=== PATIENT | female | born 1950 | race Caucasian/White ===

== ENCOUNTER 2023-03-17 19:36 | Emergency (ER) | payer MEDICARE, OTHER, SELFPAY ==
[2023-03-17 19:47] VITALS: BP 165/110
--- NOTE | 2023-03-17 21:56 | ED.MUSCINJ ---
HPI-Injury
General
Chief Complaint: Fall
Source: patient
Exam Limitations: none
Time Seen by Provider: 03/17/23 20:47
Nursing documentation reviewed up to this point in time: agreed with
Travel History
Have you had any contact with someone who has COVID-19?: No
Do you have any symptoms of coronavirus? Fever > 100 degrees, chills, cough, shortness of breath, sore throat, loss of taste or smell, muscle aches, or headache?: No
History of Present Illness-Injury
Is this injury a work related problem?: No
Is pt an associate of [facility]?: No
Initial Injury comments:
Patient states she was walking her dog and tripped over a pipe. Fell onto pavement. Hit chin hard on pavement. No LOC. Sustained lac to left hand. She was seen at and had sutures placed, dressing applied. SHe was discharged from and sent
to ED for head CT since she hit her head. COmplains of mild headache.
Past History
Past History
ED Past Medical History: Other (Chronic neck issues )
ED Past Surgical History: Appendectomy, , Gynecological (Ovarian removal ) and Orthopedic
Social History
Tobacco: Non-smoker
Alcohol: None
Drug: Marijuana
Personal: Single
Employment: Employed
Family History
Family History: Negative Early CAD
Review of Systems
Review of Systems
Allergies reviewed?: Yes
All Other Systems: ROS reviewed and negative except as documented in HPI and ROS
Constitutional: Reports no symptoms
EENT: Reports no symptoms
Respiratory: Reports no symptoms
Cardiac: Reports no symptoms
ABD/GI: Reports no symptoms
: Reports no symptoms
Musculoskeletal: Reports no symptoms
Skin: Reports other (laceration to left hand, repaired at )
Neurological: Reports headache
Psychiatric: Reports no symptoms
Phy Exam
General Physical Exam
General Presentation: well appearing and no apparent distress
General age: appears stated age
General Skin: warm and dry
General Habitus: normal
General Mental: alert
Neurological Exam
Neurological Exam: alert, oriented x3, CN II-XII intact, no motor deficits, speech normal and normal gait
[place] Coma Scale
Eye Opening: Spontaneous
Verbal Response: Oriented
Motor Response: Obeys Commands
GCS Total Score: 15
Musculoskeletal Exam
Musculoskeletal Exam: full ROM
Skin Exam
Skin Exam: normal color
Psychiatric Exam
Psychiatric Exam: normal mood/affect
Injury Course
Orders/Labs/Results
Orders:
Orders
03/17/23 19:52
CT Head W/o Iv Contrast Urgent
Comment:
Reason For Exam: fall with neck pain
Cervical Spine wo Contrast CT [CT Cervical Spine W/o Iv Contr] Urgent
Comment:
Reason For Exam: fall with neck pain
*Radiology
Radiology exam reviewed: radiology read reviewed
*Pulse Oximetry
Patient hypoxic: no
*Critical Care Note
Total Time (30-74mins, 75-104mins- exclusive of procedures): Not Applicable
ED Attending Note
-
Portions of this chart may have been created with voice recognition software.� Occasional wrong word or��sound alike� substitutions may have occurred due to the inherent limitations of voice recognition software.
Discharge Plan
Departure
Patient Disposition: Home (Routine Discharge)
Date of Disposition: 03/17/23
Time of Disposition: 21:04
Patient with high blood pressure during this ER visit?: No
Condition: Good
Covid-19: Not Applicable
Discharge Problem:
Head injury
Instructions: Head Injury in Adults (DC), Contusion (DC)
Prescriptions:
No Action
vitamin A 8,000 UNIT capsule
8,000 units PO DAILY
vitamin E 400 UNIT capsule
400 unit PO DAILY
cholecalciferol (vitamin D3) [Vitamin D3] 1,000 UNIT tablet
1,000 unit PO DAILY
omega-3 fatty acids [Fish Oil] 500 MG capsule
500 mg PO DAILY
Activity Restrictions/Additional Instructions:
FOllow up with your family doctor.
Interventions
Interventions:
*Risk Screen - Suicide Last Done: 03/17/23 19:47
*General Assessment Last Done: 03/17/23 19:47
*ED COVID-19 Vaccine History Last Done: 03/17/23 19:47
== END 2023-03-17 22:17 | disposition home or self-care (01) ==
LOC: EMR 19:36
PROVIDERS: EMERGENCY PHYSICIAN Emergency Medicine; FAMILY PHYSICIAN Family Medicine
DX: S09.90XA Unspecified injury of head, initial encounter (principal); S61.412A Laceration without foreign body of left hand, initial encounter; R51.9 Headache, unspecified; M54.2 Cervicalgia; R11.0 Nausea; W18.09XA Striking against other object with subsequent fall, initial encounter; Y93.K1 Activity, walking an animal; M19.90 Unspecified osteoarthritis, unspecified site
CPT/HCPCS: 99284; 70450; 72125

== ENCOUNTER 2024-05-13 15:04 | Emergency (ER) | payer MEDICARE, OTHER, SELFPAY ==
[2024-05-13 15:23] VITALS: BP 159/98
[2024-05-13 15:34] LABS: % Basophils 0.9 % (0-2); % Eosinophils 1.7 % (0-6); % Immature Granulocytes 0.5 % (0-0.5); % Lymphocytes 22.6 % (20.5-51.1); % Monocytes 8.5 % (1.7-9.3); % Neutrophils 65.8 % (42.2-75.2); Absolute Basophils 0.1 10^3/uL (0-0.2); Absolute Eosinophils 0.1 10^3/uL (0-0.7); Absolute Lymphocytes 1.3 10^3/uL (1.2-3.4); Absolute Monocytes 0.5 10^3/uL (0.1-0.6); Absolute Neutrophils 3.8 10^3/uL (1.4-6.5); Hematocrit 43.8 % (37.0-47.0); Hemoglobin 14.1 g/dL (12.0-16.0); Mean Corp Hgb Conc. 32.2 g/dL (33.0-37.0); Mean Corpuscular Hgb 27.6 pg (27.0-31.0); Mean Corpuscular Volume 85.9 fL (81.0-99.0); Mean Platelet Volume 10.4 fL (7.4-10.4); Nucleated Red Blood Cells % 0 %; Platelet Count 276 10^3/uL (130-400); Red Cell Dist. Width 13.6 % (11.5-14.5); White Blood Cell Count 5.8 10^3/uL (4.8-10.8)
[2024-05-13 15:43] LABS: ALT (SGPT) 25 U/L (0-35); AST (SGOT) 26 U/L (14-36); Albumin 4.4 g/dl (3.5-5.0); Alkaline Phosphatase 98 U/L (38-126); Blood Urea Nitrogen 15 mg/dl (7-17); Calcium 9.8 mg/dl (8.4-10.2); Carbon Dioxide 29 mmol/L (22-30); Chloride 102 mmol/L (98-107); Glucose 100 mg/dl (70-99); Potassium 4.2 mmol/L (3.5-5.1); Sodium 137 mmol/L (135-145); Total Bilirubin 0.5 mg/dl (0.2-1.3); Total Protein 6.4 g/dl (6.3-8.2); eGFR > 60.00
[2024-05-13 15:54] LABS: Troponin I < 0.012 ng/ml
--- NOTE | 2024-05-13 17:39 | ED.GENMED ---
History of Present Illness
General
Chief Complaint: Chest Pain
Source: patient
Exam Limitations: none
Time Seen by Provider: 05/13/24 17:22
History of Present Illness
History of Present Illness:
See MDM
Past History
Past History
ED Past Medical History: Other (Chronic neck issues )
ED Past Surgical History: Appendectomy, , Gynecological (Ovarian removal ) and Orthopedic
Social History
Tobacco: Non-smoker
Alcohol: None
Drug: Marijuana
Personal: Single
Employment: Employed
Family History
Family History: Negative Early CAD
Phy Exam
Physical Exam
Physical Exam:
See MDM
Scores
Heart Score for Chest Pain Patients
STEMI patient?: No
History: Slightly or Non-Suspicious
ECG: Normal
Age: >/= 65 years
Risk Factors: No Risk Factors
Troponin: </= Normal Limit
Heart Score for Chest Pain Patients: 2
Heart Score Risk: 2.5% MACE over next 6 weeks
Course
Orders/Labs/Results
Orders:
Orders
05/13/24 15:05
ECG [Electrocardiogram (*1)] Urgent
Reason for Study: Chest Pain
EKG- Treatment ONCE
05/13/24 15:18
Complete Blood Count/With Diff Urgent
Comprehensive Metabolic Panel Urgent
Troponin I Urgent
05/13/24 17:38
Amlodipine [Norvasc] 5 mg PO ONCE ONE
05/13/24 18:00
Dexamethasone Pf [Decadron] 10 mg PO NOW STA
Abnormal Lab Results
05/13/24
15:18
MCHC 32.2 L g/dL
(33.0-37.0)
Glucose 100 H mg/dl
(70-99)
05/13/24 15:18
05/13/24 15:18
Vital Signs
Initial and Last Documented VS:
Initial Vital Signs
Temp Pulse Resp BP Pulse Ox
98.4 F 89 16 159/98 99
05/13/24 15:23 05/13/24 15:23 05/13/24 15:23 05/13/24 15:23 05/13/24 15:23
Last Documented Vital Signs
Temp Pulse Resp BP Pulse Ox
98.4 F 89 16 159/98 96
05/13/24 15:23 05/13/24 15:23 05/13/24 15:23 05/13/24 15:23 05/13/24 17:03
MDM/Problems Addressed
Differential Diagnosis Includes:
HPI and MDM Narrative:
73-year-old female presenting for evaluation of headache and chest pressure. Patient does acknowledge that the chest pressure is somewhat constant. She has a history of reflux and is trying to get off of omeprazole. She believes it could be
related to reflux. She saw her doctor who was going to place her on antihypertensives but wanted her evaluated for her chest pressure first. EKG and blood work done prior to my assessment. EKG within normal limits and troponin negative. I
discussed with patient that her chest discomfort is likely noncardiac. Symptoms are nonexertional. 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 She also complains of a posterior headache. She states she has had
multiple injuries in the past and has had prolonged concussion syndrome. We discussed it could be related to that. Given no neurodeficits, we discussed low yield for CT head. Patient agrees.
I believe much of her symptoms are related to her insomnia and lack of sleep. Patient states she usually sleeps only 3 hours at night. She states he has a history of sleep apnea but is hesitant to start CPAP. I discussed the medical benefits of
sleep and we discussed the significant stress in the body due to lack of sleep. Patient does acknowledge and will talk to her doctor this week about how to obtain better sleep. Will start on low-dose amlodipine until she can be seen by PCP this
week
Physical exam
General: Well appearing and non-toxic
HEENT: protecting airway. EOMI. Pupils are equal and reactive
Neck: appears supple
CV: No evidence of cyanosis. Regular rate and rhythm
Resp: No accessory muscle use. Lungs clear
Abd: Non-distended
Extremities: No deformities. No leg edema
Neuro: alert
Psych: Normal affect
Skin: Intact
Problems Addressed including Acute and Chronic Conditions affecting care:
1. Hypertension
Acuity: Likely chronic
Prognosis: stable
Details: Will start low-dose amlodipine. No evidence of endorgan damage on blood work
2. Chest pain
Acuity: acute
Prognosis: stable
Details: Given nonexertional symptoms and duration of symptoms with a negative troponin and EKG, doubt ACS
Update
Prior to being discharged, patient noted a hive in her right antecubital fossa where the blood was obtained. Patient states she has had prior allergic issues in the past. She states some of them have been significant. I suggested Benadryl and
Decadron and watching to ensure that she develops no throat involvement. Patient states she has Benadryl at home but is willing to take Decadron and go home. We discussed return precautions. Patient given dose of Decadron
Differential Diagnosis (but not limited to): Insomnia, hypertension, noncardiac chest pain
Testing considered: Second troponin but doubt ACS given duration of symptoms
Drug therapy (if applicable): OTC meds, please see d/c instruction regarding Rx drugs
Amount and/or Complexity of Data Reviewed
Clinical info obtained from: Patient
External data reviewed: N/A
Labs I independently reviewed (but not limited to): Normal troponin
Radiology: N/A
Pulse Ox: not hypoxic
EKG independently reviewed: Sinus rhythm, normal axis, no STEMI
Returns Processor: Sinus rhythm
Critical Care: N/A
Risk of Complication:
Social Determinants of health: Good social support
Discussed with other providers: N/A
Escalation of Care includes Admit/Obs: After being observed in the Emergency Department, pt stable for discharge.
Occasional wrong word or 'sound a like' substitutions may have occurred due to the inherent limitations of voice recognition software. Read the chart carefully and recognize, using context, where substitutions have occurred.
*Critical Care Note
Total Time (30-74mins, 75-104mins- exclusive of procedures): Not Applicable
ED Attending Note
-
Portions of this chart may have been created with voice recognition software.� Occasional wrong word or��sound alike� substitutions may have occurred due to the inherent limitations of voice recognition software.
Discharge Plan
Departure
Patient Disposition: Home (Routine Discharge)
Date of Disposition: 05/13/24
Time of Disposition: 17:42
Patient with high blood pressure during this ER visit?: Yes
Discharge Problem:
Mild HTN
Instructions: BLOOD PRESSURE
Prescriptions:
New
amlodipine 5 mg tablet
5 mg PO DAILY Qty: 7 0RF
No Action
vitamin A 8,000 UNIT capsule
8,000 units PO DAILY
vitamin E 400 UNIT capsule
400 unit PO DAILY
cholecalciferol (vitamin D3) [Vitamin D3] 1,000 UNIT tablet
1,000 unit PO DAILY
omega-3 fatty acids [Fish Oil] 500 MG capsule
500 mg PO DAILY
Activity Restrictions/Additional Instructions:
Please return for any worsening symptoms.
You may return at any time if you have further concerns.
Please follow up with your doctor at the first available appointment, preferably this week.
Thank you for choosing [facility].
Interventions
Interventions:
*Risk Screen - Suicide Last Done: 05/13/24 15:24
*Neglect/Abuse Screening Last Done: 05/13/24 15:24
Discharge Date and Time
Print Language: AMHARIC
[2024-05-13] MEDS: NORVASC 5 MG PO (18:02)
[2024-05-13] MEDS: DECADRON 10 MG PO (18:03)
[2024-05-13 18:14] VITALS: BP 156/84
--- NOTE | 2024-05-13 18:14 | EDRN ---
decadron PO administered per Dr. Beaulieu orders for RAC redness and itching
[2024-05-13 18:15] VITALS: BMI 24.2
== END 2024-05-13 18:25 | disposition home or self-care (01) ==
LOC: EMR 15:04
PROVIDERS: EMERGENCY PHYSICIAN Student in an Organized Health Care Education/Training Program; FAMILY PHYSICIAN Family Medicine
DX: I10 Essential (primary) hypertension (principal); Z90.49 Acquired absence of other specified parts of digestive tract
CPT/HCPCS: 99283; 80053; 84484; 85025; 93005

== ENCOUNTER 2024-08-29 12:51 | Emergency (ER) | payer MEDICARE, OTHER, SELFPAY ==
[2024-08-29 13:00] VITALS: BP 149/99
[2024-08-29 13:31] LABS: Hematocrit 43.7 % (37.0-47.0); Hemoglobin 14.2 g/dL (12.0-16.0); Mean Corp Hgb Conc. 32.5 g/dL (33.0-37.0); Mean Corpuscular Volume 85.5 fL (81.0-99.0); Nucleated Red Blood Cells % 0 %; Platelet Count 235 10^3/uL (130-400); Red Cell Dist. Width 13.7 % (11.5-14.5)
[2024-08-29 14:01] LABS: ALT (SGPT) 34 U/L (0-35); AST (SGOT) 34 U/L (14-36); Albumin 4.2 g/dl (3.5-5.0); Alkaline Phosphatase 93 U/L (38-126); Blood Urea Nitrogen 7 mg/dl (7-17); Calcium 9.5 mg/dl (8.4-10.2); Carbon Dioxide 27 mmol/L (22-30); Chloride 105 mmol/L (98-107); Glucose 122 mg/dl (70-99); Potassium 4.0 mmol/L (3.5-5.1); Sodium 137 mmol/L (135-145); Total Protein 6.4 g/dl (6.3-8.2); eGFR > 60.00
[2024-08-29 14:12] LABS: Troponin I < 0.012 ng/ml
[2024-08-29 15:18] VITALS: BP 148/93
[2024-08-29 15:19] VITALS: BMI 23.2
[2024-08-29 16:00] VITALS: BP 147/91
--- NOTE | 2024-08-29 16:00 | ED.GENMED ---
History of Present Illness
General
Chief Complaint: Chest Pain
Source: patient
Exam Limitations: none
Time Seen by Provider: 08/29/24 15:59
History of Present Illness
History of Present Illness:
73yoF with a history of hypertension and GERD presenting for evaluation of chest pain. Patient was sitting reclined around noon today. She drank some tea and ate crackers. She felt like the crackers got stuck in the middle of her chest and she
started to experience 'gripping' pain in her substernal region. Pain radiated to her jaw and head. Pain occurred every minute for about 45 minutes to an hour before resolving. She did become diaphoretic during the episode. She denies any
associated nausea, vomiting, shortness of breath, dizziness, paresthesias. Her symptoms resolved while she was in the waiting room and she has been pain free for about 2.5 hours. Of note, patient has been experiencing diarrhea for the past 3 days
which seems improved today. She reports having a stress test about 3 years ago which was reportedly normal.
Past History
Past History
ED Past Medical History: Other (Chronic neck issues )
ED Past Surgical History: Appendectomy, , Gynecological (Ovarian removal ) and Orthopedic
Social History
Tobacco: Non-smoker
Alcohol: None
Drug: Marijuana
Personal: Single
Employment: Employed
Family History
Family History: Negative Early CAD
Phy Exam
General Physical Exam
General Presentation: well appearing and no apparent distress
General Skin: warm and dry
General Habitus: normal
General Mental: alert
ENT Exam
ENT Exam: normocephalic
Cardiovascular Exam
Cardiovascular Exam: regular rate/rhythm, no edema, no murmur and normal peripheral pulses (2+ radial and DP pulses bilaterally)
Pulmonary Exam
Pulmonary Exam: lungs clear, no respiratory distress, no rales, no crackles, no rhonchi and no wheezing
Gastrointestinal Exam
Gastrointestinal Exam: non tender, soft and non distended
Neurological Exam
Neurological Exam: alert
[place] Coma Scale
Eye Opening: Spontaneous
Verbal Response: Oriented
Motor Response: Obeys Commands
GCS Total Score: 15
Skin Exam
Skin Exam: normal color and warm/dry
Psychiatric Exam
Psychiatric Exam: normal mood/affect
Scores
Heart Score for Chest Pain Patients
STEMI patient?: No
History: Moderately Suspicious
ECG: Normal
Age: >/= 65 years
Risk Factors: 1 or 2 Risk Factors
Troponin: </= Normal Limit
Heart Score for Chest Pain Patients: 4
Heart Score Risk: 20.3% MACE over next 6 weeks
Course
Orders/Labs/Results
Orders:
Orders
08/29/24 12:52
EKG [Electrocardiogram (*1)] Urgent
Reason for Study: Chest Pain
EKG- Treatment ONCE
08/29/24 13:16
Complete Blood Count/With Diff Urgent
Comprehensive Metabolic Panel Urgent
Troponin I Urgent
08/29/24 16:12
Electrocardiogram (*1) Urgent
Reason for Study: Chest Pain
Cardiac Monitoring- Treatment ONCE
EKG- Treatment ONCE
CR Chest - 2 Views Urgent
Comment:
Reason For Exam: CP
08/29/24 16:29
Troponin I Urgent
Abnormal Lab Results
08/29/24
13:16
WBC 3.5 L 10^3/uL
(4.8-10.8)
MCHC 32.5 L g/dL
(33.0-37.0)
MPV 10.8 H fL
(7.4-10.4)
Absolute Lymphs (auto) 0.9 L 10^3/uL
(1.2-3.4)
Monocytes % 12.7 H %
(1.7-9.3)
Glucose 122 H mg/dl
(70-99)
08/29/24 13:16
08/29/24 13:16
Vital Signs
Initial and Last Documented VS:
Initial Vital Signs
Temp Pulse Resp BP Pulse Ox
97.7 F 83 22 149/99 99
08/29/24 13:00 08/29/24 13:00 08/29/24 13:00 08/29/24 13:00 08/29/24 13:00
Last Documented Vital Signs
Temp Pulse Resp BP Pulse Ox
97.7 F 77 15 147/91 96
08/29/24 13:00 08/29/24 16:34 08/29/24 16:34 08/29/24 16:00 08/29/24 16:15
MDM/Problems Addressed
Differential Diagnosis Includes:
73yoF here with chest pain that started while she was laying reclined and eating crackers. Described as a gripping sensation in the center of her chest. Intermittent x 1 hour and now resolved. She has been pain free for 2+ hours on initial exam. She
is well appearing in no distress. Exam is reassuring. Differential diagnosis includes but is not limited to: Esophageal spasm, musculoskeletal, ACS, doubt PE as symptoms have resolved
Initial ED plan: Workup initiated in triage. EKG shows NSR without ischemic changes and troponin WNL. Will check delta troponin/EKG and CXR.
*Pulse Oximetry
SaO2: 98
Oxygen Mode of Delivery: Room air
Patient hypoxic: no (99%)
*EKG
Interpreted by ED Provider?: Yes
EKG Intrepretation Date: 08/29/24
Heart Rate: 79
Rate: normal
Rhythm: sinus
[place]: normal axis
Interval: normal interval
QRS Pattern: normal QRS
Ischemia: no ischemia
*Critical Care Note
Total Time (30-74mins, 75-104mins- exclusive of procedures): Not Applicable
Update Note
Update Note:
Repeat EKG and troponin performed 3 hours after initial testing are unchanged. Chest x-ray is clear. She remains chest pain-free on reassessment. No telemetry events throughout ED stay. No indication for hospitalization. Advised close follow-up
with PCP within next 48 hours and ED return precautions reviewed. Patient in agreement with plan and was discharged in stable condition.
ED Attending Note
-
Portions of this chart may have been created with voice recognition software.� Occasional wrong word or��sound alike� substitutions may have occurred due to the inherent limitations of voice recognition software.
Discharge Plan
Departure
Patient Disposition: Home (Routine Discharge)
Date of Disposition: 08/29/24
Time of Disposition: 17:11
Patient with high blood pressure during this ER visit?: Yes
Discharge Problem:
Chest pain
Instructions: Chest pain - Discharge instructions
Prescriptions:
No Action
vitamin A 8,000 UNIT capsule
8,000 units PO DAILY
vitamin E 400 UNIT capsule
400 unit PO DAILY
cholecalciferol (vitamin D3) [Vitamin D3] 1,000 UNIT tablet
1,000 unit PO DAILY
omega-3 fatty acids [Fish Oil] 500 MG capsule
500 mg PO DAILY
amlodipine 5 mg tablet
5 mg PO DAILY Qty: 7 0RF
Referrals:
UNKNOWN - PT DOES,NOT KNOW [Unknown Provider]
Activity Restrictions/Additional Instructions:
Please follow-up with your family doctor in the next 48 hours. Return to the ER with any new or worsening symptoms.
Interventions
Interventions:
*Risk Screen - Suicide Last Done: 08/29/24 13:00
*General Assessment Last Done: 08/29/24 13:00
*Neglect/Abuse Screening Last Done: 08/29/24 15:23
*ED- Fall Risk Assessment Last Done: 08/29/24 13:00
*ED COVID-19 Vaccine History Last Done: 08/29/24 13:00
ED- Cardiac Assessment Last Done: 08/29/24 15:23
Discharge Date and Time
Print Language: YAKUT
[2024-08-29 16:59] LABS: Troponin I < 0.012 ng/ml
== END 2024-08-29 17:28 | disposition home or self-care (01) ==
LOC: EMR 12:51
PROVIDERS: Physician Assistant; Student in an Organized Health Care Education/Training Program; EMERGENCY PHYSICIAN Emergency Medicine; FAMILY PHYSICIAN Family Medicine
DX: R07.9 Chest pain, unspecified (principal); I10 Essential (primary) hypertension
CPT/HCPCS: 99285; 71046; 80053; 84484; 85025; 93005